=== PATIENT | male | born 1960 | race Caucasian/White ===

== ENCOUNTER 2016-12-02 18:59 | Inpatient (IN) | payer OTHER ==
--- NOTE | ~2016-12-02 | HP ---
Unit #: [id number] #: [id number] Patient: VENESSA KEMP [id number] [place] [address] [id number] MR#: [id number] NAME: VENESSA KEMP ROOM: [facility] Age: 56 Sex: M Admission Date: 12/02/2016 : 1960 Attending Physician: Chas Moss M.D. Admitting Physician: Chas Moss M.D. Primary Care Physician: Primary Care Physician No HISTORY AND PHYSICAL HISTORY OF PRESENT ILLNESS The patient is a 56-year-old male admitted to [address] [place] [address] on 12/02/2016 for suicidal ideation. PAST MEDICAL HISTORY 1. Hypertension 2. Allergies 3. Restless leg syndrome 4. 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 SOCIAL HISTORY The patient is unemployed and lives alone. He drinks about a six pack of beer per day. FAMILY MEDICAL HISTORY Noncontributory. ALLERGIES No known drug allergies. CURRENT MEDICATIONS 1. Amlodipine 2. Abilify 3. Bisoprolol 4. Cetirizine 5. Duloxetine 6. Oxcarbazepine 7. Trazodone 8. Flonase 9. Gabapentin 10. Hydroxyzine 11. Levothyroxine 12. Multivitamin 13. Seroquel 14. Vitamin D REVIEW OF SYSTEMS CONSTITUTIONAL: No fever or chills. HEENT: Denies any sore throat, ear pain or runny nose. CARDIOVASCULAR: Denies chest pain, irregular heart rhythm or palpitations. CHEST: Denies shortness of breath or cough. No hemoptysis. Unit #: [id number] #: [id number] Patient: VENESSA KEMP GASTROINTESTINAL: Denies nausea, vomiting, diarrhea or chronic constipation. ENDOCRINE: Denies history of increased thirst or urination. No recent significant weight loss or gain. GENITOURINARY: Denies dysuria, frequency, or hematuria. SKIN: Denies any rashes. HEMATOLOGIC: Denies history of increased bleeding or bruising. MUSCULOSKELETAL: Denies any hot, swollen joints. No generalized muscle pain. NEUROLOGIC: Denies problems with vision or speech. No frequent, severe headaches. No numbness, tingling or weakness in any extremities. Denies loss of bladder or bowel control. PHYSICAL EXAM GENERAL: He is awake, alert and oriented in no acute distress. VITAL SIGNS: Temperature 97.6, heart rate 52, respiration 16, blood pressure 132/92. HEIGHT: 5'7". WEIGHT: 152 pounds. SKIN: Warm and dry without rash or lesion. HEENT: Normocephalic. TMs not viewed. Oral and nasal passages clear. Conjunctivae clear. PERRLA. EOMs intact. NECK: Supple without lymphadenopathy or thyromegaly. HEART: Regular rate and rhythm without murmur. LUNGS: Clear. ABDOMEN: Soft, nontender. : Not done. EXTREMITIES: No evidence of cyanosis, clubbing or edema. Moves all without focal deficit. NEUROLOGICAL: Grossly within normal limits. Cranial Nerves: II: Visual ricks are intact. III, IV AND : Extraocular movements are intact. Pupils are equal, round and reactive to light. V: Facial sensation is grossly normal. VII: Facial movements and expression are normal. VIII: Auditory acuity grossly intact. IX, X: Uvula is midline. Phonation is normal. XI: Patient shrugs shoulders and turns head normally. XII: Tongue protrudes in the midline. Sensory and Motor Function: Sensory and motor sensation is grossly normal. Motor: moves all extremities well. IMPRESSION 1. Psychiatric admission 2. Hypertension 3. Allergies 4. Restless leg syndrome 5. Hypothyroidism RECOMMENDATIONS Psychiatric per psychiatrist. MEDICAL: No contraindication to participate in facility activities. MEDICAL PROGNOSIS Good. MEDICAL CONDITION Stable. Unit #: [id number] #: [id number] Patient: VENESSA KEMP Dictated by... Mike Avalos/malia TD: 12/03/2016 22:02 JOB #: [id number] HISTORY AND PHYSICAL Page 1 of 1 X ENRICO SOTO APRN HISTORY AND PHYSICAL
--- NOTE | ~2016-12-02 | PA ---
Unit #: [id number] #: [id number] Patient: ROJAS KEMP [id number] [facility] [address] [place] [address] [id number] MR#: [id number] NAME: ROJAS KEMP ROOM: [facility] Age: 56 Sex: M Admission Date: 12/02/2016 : 1960 Date of Assessment: Attending Physician: Chas Moss M.D. Admitting Physician: Chas Moss M.D. PSYCHIATRIC ASSESSMENT INFORMANTS The patient reliability, fair informant and chart reliability, good. CHIEF COMPLAINT Recent suicide attempt. HISTORY OF PRESENT ILLNESS Mr. Rojas Kemp is a 56-year-old male, seen on [facility]. The patient was admitted to [facility] due to suicide attempt by taking overdose. The patient reports that he has a history of bipolar mood disorder and history of previous admission at [facility] in the past due to nghia. The patient reports that he was at [facility] for almost a month after a suicide attempt. The patient lives alone, has good support from his family. The patient was initially brought to [facility] on 12/01/2016 after overdosing on gabapentin. The patient stated that he has been feeling blue in the last several days because he has not been able to find work. The patient reports gabapentin for his restless legs and anxiety and reports that he enjoys they make him feel. The patient stated that he always takes his medication as prescribed. The patient decided to take more than prescribed medication on 12/01/2016 because he wanted to feel better. The patient reported alcohol abuse also. The patient reported history of DUI and multiple inpatient treatment for alcohol abuse. The patient reported that he was recently treated for hydrocephaly in 06/2016 and a shunt was placed in his head. The patient has been unemployed for the last several months, feeling sad and depressed, lives alone, . Needing inpatient admission at this time for psychiatric stabilization. PAST PSYCHIATRIC HISTORY Remarkable for history of previous treatment at [facility] for nghia. Also, treatment for alcohol abuse in the past. FAMILY HISTORY AND SOCIAL HISTORY The patient lives alone, has good support system. No history of any abuse. MEDICAL HISTORY Remarkable for history of hydrocephaly, status post surgery. Musculoskeletal; muscle strength and tone, no atrophy or abnormal movement. Gait normal. MEDICATION HISTORY The patient is on amlodipine 10 mg in the morning, Abilify 5 mg in the morning, bisoprolol 10 mg in the morning, Cetirizine 10 mg in the morning, Unit #: [id number] #: [id number] Patient: ROJAS KEMP Duloxetine 60 mg daily, Flonase 50 mg daily, gabapentin 300 mg t.i.d., hydroxyzine 50 mg t.i.d., levothyroxine 50 mcg in the morning, multivitamin, Trileptal 600 mg b.i.d., Seroquel 100 mg at bedtime, and trazodone 300 mg at bedtime. ALLERGIES No known drug allergies. SUBSTANCE ABUSE HISTORY The patient reported alcohol use, age of onset 14; LSD, age of onset 19; and benzodiazepine, age of onset 15. REVIEW OF SYSTEMS HEENT: Eyes, clear. Ears, nose, mouth, and throat; clear. CARDIOVASCULAR: Unremarkable. RESPIRATORY: Unremarkable. GI: Unremarkable. : Unremarkable. SKIN: Unremarkable. LYMPH NODE: Unremarkable. NEUROLOGIC: Unremarkable. ENDOCRINE: Unremarkable. HEMATOLOGIC: Unremarkable. ALLERGIC/IMMUNOLOGIC: Unremarkable. MUSCULOSKELETAL: Muscle strength and tone, no atrophy or abnormal movement. Gait normal. MENTAL STATUS EXAMINATION CONSTITUTIONAL: Measurement of vital signs; temperature 98.0, heart rate 61, respiratory rate 16, oxygen saturation 98%, and blood pressure 131/77. Height 5 feet 7 inches and weight 170 pounds. GENERAL APPEARANCE: The patient dressed casually. The patient did not show any facial deformity. MUSCULOSKELETAL: Muscle strength and tone, no atrophy or abnormal movement. Gait normal. PSYCHIATRIC EXAMINATION Description of speech, regular rate and normal volume. Description of thought process, goal directed. Description of association, intact. Description of abnormal psychotic thinking; the patient denied any hallucinations or delusions, but recent suicide attempt, depression, bipolar disorder, and anxiety. Description of the patient's judgment: Concerning everyday activity, poor. Social situation, poor. Concerning psychiatric condition, poor. Complete mental status examination; oriented in time, place, and person. Recent and remote memory, fair. Attention span and concentration, fair. Language, able to name object and repeat phrases. Fund of knowledge, aware of current event and passive vocabulary intact. Mood and affect, sad and dysphoric. Insight and judgment, fair to poor. ASSETS AND LIABILITIES Assets, the patient is articulate and able to take care of his ADL. Liability; history of substance abuse, depression, and bipolar disorder. ADMITTING DIAGNOSES Psychiatric: Major depressive disorder, recurrent, severe, F31.89. Unit #: [id number] #: [id number] Patient: ROJAS KEMP Secondary diagnosis: Deferred. Medical diagnoses: History of hypertension and hydrocephalus, status post surgery. Stressors: Psychosocial stressors. PSYCHIATRIC PLAN AND TREATMENT GOAL AND DISCHARGE PLAN 1. Advised to admit the patient on the inpatient unit. Provide safe, supportive, and structured environment. 2. Ordered labs; CBC, CMP, UA, and UDS. 3. Precaution for self-harm. SP1 precaution. 4. The patient to attend all the programing on the inpatient unit, group therapy, individual therapy, and medication management. Advised to continue with home medication with a plan to consider change if needed. TREATMENT GOAL To attain euthymic mood, gain insight into his problem, and learn coping skills. DISCHARGE PLAN Plan to stabilize the patient and consider followup in outpatient program ESTIMATED LENGTH OF STAY 5 to 7 days. Dictated by... Chas Moss M.D. LARA/pamella TD: 12/03/2016 16:22 JOB #: [id number] PSYCHIATRIC ASSESSMENT Page 1 of 1 X Chas Moss MD PSYCHIATRIC ASSESSMENT
--- NOTE | ~2016-12-02 | DS ---
Unit #: [id number] #: [id number] Patient: VENESSA KEMP [id number] [facility] [address] [place] [address] [id number] MR#: [id number] NAME: VENESSA KEMP ROOM: [facility] Age: 56 Sex: M Admission Date: 12/02/2016 : 1960 Discharge Date: 12/04/2016 Attending Physician: Chas Moss M.D. Primary Care Physician: Primary Care Physician No DISCHARGE SUMMARY REASON FOR ADMISSION Overdose. DIAGNOSTIC STUDIES LABORATORY RESULTS: Unremarkable. HOSPITAL COURSE The patient was admitted to inpatient unit on 12/02/2016 and discharged on 12/04/2016. Before that, the patient was treated at [facility]. The patient responded well with the above modalities of treatment, group therapy, individual therapy, and medication management. Subsequently, the patient was discharged with a plan to follow up in outpatient program. DISCHARGE MEDICATIONS Sinequan 100 mg at bedtime for sleep, Prozac 20 mg daily for depression, and Zyprexa 20 mg daily for mood stabilization. DISCHARGE DIAGNOSES Psychiatric: 1. Major depressive disorder, recurrent, severe, F31.89. 2. History of bipolar mood disorder. Secondary diagnosis: Deferred. Medical diagnoses: History of hypertension, hydrocephalus, status post surgery. Stressors: Psychosocial stressors. DISCHARGE INSTRUCTIONS The patient is to follow up in outpatient clinic as per social contact worker. CONDITION ON DISCHARGE The patient was pleasant and cooperative. Denied any psychotic symptom or any suicidal ideation. PROGNOSIS Guarded. DIET AND ACTIVITY As tolerated. Dictated by... Unit #: [id number] #: [id number] Patient: VENESSA KEMP Deon AdameC/pamella TD: 12/04/2016 15:41 JOB #: [id number] DISCHARGE SUMMARY Page 1 of 1 X Chas Moss MD X DISCHARGE SUMMARY
[2016-12-03 11:15] LABS: URINE APPEARANCE CLEAR; URINE BILIRUBIN NEG (NEG); URINE BLOOD NEG (NEG); URINE COLOR YELLOW; URINE GLUCOSE NEG (NEG); URINE KETONE NEG (NEG); URINE LEUKOCYTE ESTERASE TRACE (NEG); URINE NITRATE NEG (NEG); URINE PROTEIN NEG (NEG); URINE SPECIFIC GRAVITY 1.013 (1.003-1.035); URINE UROBILINOGEN 0.2 MG/DL (NEG)
[2016-12-03 11:24] LABS: URBCS1 AUWI 0-2 /[HPF] (0-2); URINE BACTERIA AUWI NEG (NEGATIVE); URINE SQUAMOUS EPITHELIAL CELL NONE SEEN /[HPF]
[2016-12-03 11:56] LABS: AMPHETAMINE NEG (NEG); BARBITURATES NEG (NEG); BENZODIAZEPINES NEG (NEG); COCAINE NEG (NEG); MARIJUANA NEG (NEG); OPIATES NEG (NEG); TRICYCLIC ANTIDEPRESSANTS POS (NEG); U METHADONE NEG (NEG)
== END 2016-12-04 11:20 | disposition home or self-care (01) | DRG 885 ==
LOC: P2L 18:59
PROVIDERS: Psychiatry & Neurology Psychiatry
DX: F33.2 Major depressive disorder, recurrent severe without psychotic features (principal); R45.851 Suicidal ideations; I10 Essential (primary) hypertension; G25.81 Restless legs syndrome; E03.9 Hypothyroidism, unspecified; Z91.5 Personal history of self-harm
CPT/HCPCS: 80307; 81003